=== PATIENT | male | born 1985 | race African-American/Black ===

== ENCOUNTER 2024-10-20 23:03 | Emergency (ER) | payer OTHER ==
[~2024-10-20] VITALS: Ht 182.9 cm; Wt 82.0 kg
[2024-10-20 23:12] VITALS: BP 143/79; PULSE 97; RESP 16; TEMP 36.9; O2SAT 98
== END 2024-10-20 23:39 ==
LOC: ER 23:03
DX: F10.129 Alcohol abuse with intoxication, unspecified (principal); F15.90 Other stimulant use, unspecified, uncomplicated; I10 Essential (primary) hypertension; Z79.899 Other long term (current) drug therapy; Y90.9 Presence of alcohol in blood, level not specified
CPT/HCPCS: 82962; 99283